=== PATIENT | male | born 1950 | race Caucasian/White ===

== ENCOUNTER 2017-05-28 10:32 | Day surgery (SDC) | payer MEDICARE ==
[~2017-05-28] VITALS: Ht 165.1 cm; Wt 84.9 kg
[~2017-05-28 10:32] MED LIST: AMBI10TA PO; FENT25DI TD; GABA300C3 PO; PERC10TA27 PO; SOMA350T PO; XANA0.5T PO; [UNRECOGNIZED DRUG - CODE]
[2017-05-28] MEDS ORDERED: IOHEXOL 350 MG/ML 100 ML BTL (for Cath Lab) OTHER ONE (10:33)
[2017-05-28] MEDS ORDERED: ASPIRIN 81 MG CHEW TAB PO SCH (11:00)
[2017-05-28 11:37] VITALS: BP 137/83; PULSE 85; RESP 18; TEMP 98.2; O2SAT 98
[2017-05-28] MEDS ORDERED: PERC10TA27 PO (11:45)
[2017-05-28] MEDS ORDERED: ASPI81TA23 PO (11:45)
[2017-05-28] MEDS ORDERED: RAPA8CAP PO (11:45)
[2017-05-28] MEDS ORDERED: SOMA350T PO (11:45)
[2017-05-28] MEDS ORDERED: OXYC-103 PO (11:45)
[2017-05-28 12:01] LABS: AUTOMATED NEUTROPHIL # 3.3 TH/MM3 (1.8-7.7); BASOPHIL % 0.6 % (0.0-2.0); EOSINOPHIL # 0.1 TH/MM3 (0-0.4); EOSINOPHIL % 1.4 % (0.0-4.0); HEMATOCRIT 41.8 % (39.0-51.0); HEMO FLAGS DIFF FINAL; LYMPH % 21.2 % (9.0-44.0); MEAN CELL VOLUME 88.5 FL (80.0-100.0); MEAN CORPUSCULAR HGB CONC 35.1 % (32.0-36.0); NEUT % 69.8 % (16.0-70.0); PLATELET COUNT 128 TH/MM3 (150-450); RED BLOOD COUNT 4.73 MIL/MM3 (4.50-5.90); RED CELL DISTRIBUTION WIDTH 12.9 % (11.6-17.2); WHITE BLOOD COUNT 4.7 TH/MM3 (4.0-11.0)
[2017-05-28 12:09] LABS: INTERNATIONAL NORMALIZED RATIO 1.1 RATIO; PROTHROMBIN TIME - PATIENT 10.7 SEC (9.8-11.6)
[2017-05-28 12:15] LABS: BICARBONATE 25.3 MEQ/L (21.0-32.0); POTASSIUM 3.9 MEQ/L (3.5-5.1)
[2017-05-28] MEDS ORDERED: HEPARIN-NS/PF INJ 1,000 ML ONE (12:50)
[2017-05-28] MEDS ORDERED: MIDAZOLAM HCL 2 MG/2 ML VIAL ONE (13:02)
[2017-05-28] MEDS ORDERED: HEPARIN SODIUM - IV 10,000 UNITS/10 ML VIAL ONE (13:40)
[2017-05-28] MEDS ORDERED: TIROFIBAN INFUSION INJ 250 ML IV ONE (14:03)
[2017-05-28] MEDS: TIROFIBAN INFUSION INJ 250 ML IV SCH (14:12)
[2017-05-28] MEDS ORDERED: CLOPIDOGREL 300 MG TAB ONE (14:18)
[2017-05-28] MEDS: CLOPIDOGREL 300 MG TAB PO ONE ×2 (14:20→15:00)
--- NOTE | 2017-05-28 14:27 | CATHPROC ---
Jimmy Fairly HIS Report Study Information Study Number Admission Scheduled Start Study Start [id number] May 28 2017 10:32AM 05/28/2017 May 28 2017 12:38PM [place] [facility] Cardiac Catheterization Admit Source Facility Department Other [facility] Physician and Clinical Staff Initial Juan Ramon Beavers Security Program Manager Ayde Phoenix BSN Recorder Venus Collins,RT(R) Scrub Ignacio Gomez RCIS(BS) Procedures Performed Procedure Location (Site) Vessel Name Coronary Angiograms LCA Left Coronary Coronary Angiograms RCA Right Coronary L Heart Cath LV Gram-hand inj. LV LV Ventricle PTCA LAD Mid Left Coronary Stent LAD Mid Left Coronary Wire insertion Fem Art (right) Femoral Art Equipment Time Dye Range Operator Description Size Mfg Part Number Used/Scraped [id number] 13:43 [employer] WIRE, ASAHI PROWATER 180CM 180CM Used *[id number] TRANSDUCER, TRUWAVE [id number] 12:59 KRAMER MAURO * Used W/STOCKCOCK *[id number] [id number] *[id number] 538-421 *[id number] *[id number] 12:59 [employer] INDUSTRIES PACK, CCL CUSTOM * Used *[id number] 12:59 [employer] PACER PEN, SKIN DUAL W/ RULER * Used *[id number] 13:50 MEDTRONIC BALLOON, 2.5 X 12MM EUPHORA 12MM Used *[id number] 13:57 MEDTRONIC STENT, 2.5 12 INTEGRITY 2.5 12 Used *[id number] 13:45 MEDTRONIC STENT, 2.5 26 INTEGRITY 2.5 26 Used *[id number] 13:51 [employer] MEDICAL 30 ANA INDEFLATOR Used *[id number] 13:40 [employer] MEDICAL SHEATH, FR6.5 PRELUDE 11CM FR 6.5 038ACT Used *[id number] 12:59 [employer] MEDICAL WIRE, 3MMJ .035 180CM 180CM Used *[id number] 12:59 NAMIC MANIFOLD, 4 PORT * Used *[id number] 12:59 NYCOMED OMNIPAQUE, 350 MG, 150ML 150ML [id number] Used 14:00 NYCOMED OMNIPAQUE, 350 MG, 150ML 150ML [id number] Used [id number] 12:59 GARCIA MEDICAL BLANKET,WARM AIR CCL * Used *[id number] 12:59 TERUMO MEDICAL SHEATH, FR4 TERUMO (10CM) FR 4 Used *[id number] Equipment Model, Serial, Lot Number and Expiration Data Description Model Number Serial Number Lot Number Expiration Date STENT, 2.5 12 INTEGRITY [id number] 10-13-2018 STENT, 2.5 26 INTEGRITY [id number] 11-07-2017 History: Current Medications Medication Dosage/Unit Route Frequency Last Date/Time Taken ASA History: Allergies Allergy Reaction Sulfa (Sulfonamide Antibiotics) meperidine History: Risk Factors Family History of Hypertension Dyslipidemia Previous NE Previous Heart Failure Premature CAD No Yes No No No Prior Valve Prior PCI Prior CABG Surgery No No No Cerebrovascular Peripheral Artery Chronic Lung On Dialysis Diabetes Disease Disease Disease No No No No No History: Stress Tests Stress or Imaging Studies Performed Yes Stress Test SPECT Stress Test SPECT Result Stress Test SPECT Ischemia Risk/Extent Yes Positive Intermediate History: Other Current Smoker No Labs Hgb (g/dl) Hct (%) WBC (l/cumm) Platelets (thousands) 11.60-17.00 35.00-51.00 4.00-11.00 150.00-450.00 14.7 41.8 4.7 128 Glucose (mg/dl) BUN (mg/dl) Creatinine (mg/dl) BUN:Creatinine (1:x) 74.00-106.00 7.00-18.00 0.50-1.30 10.00-20.00 111 16 0.8 20 Na (meq/l) K (meq/l) 136.00-145.00 3.50-5.10 139 3.9 INR (PTT:PT) 0.90-1.10 1.1 CPK-MB (ng/ML) 0.50-3.60 Not Drawn Medication Medication Total Dose (Bolus/Oral) Medication Total Dosage/Unit 1% XYLOCAINE 20 mL AGGRASTAT BOLUS 42 mL FENTANYL 25 mcg HEPARIN 6000 units PLAVIX 600 mg VERSED 2 mg Medications (Bolus/Oral) Medication Time Given Dosage/Unit Administered By Reason VERSED 05/28/2017 1:23:50 PM 1 mg Ayde Phoenix 1 mg VERSED given in lab by MatAyde moseley BSN in Left Antecubital via Peripheral IV. Ordered Juan Ramon Hdez. 1% XYLOCAINE 05/28/2017 1:26:03 PM 20 mL Juan Ramon Guzman 20 mL 1% XYLOCAINE given in lab by Juan Ramon Guzman in Right Groin via Subcutaneous. VERSED 05/28/2017 1:30:02 PM 1 mg Ayde Phoenix 1 mg VERSED given in lab by Ayde Phoenix BSN in Left Antecubital via Peripheral IV. Ordered Juan Ramon Hdez. HEPARIN 05/28/2017 1:42:00 PM 6000 units Ayde Phoenix 6000 units HEPARIN given in lab by Ayde Phoenix BSN in Left Antecubital via Peripheral IV. Or dered by Juan Ramon Guzman. AGGRASTAT BOLUS 05/28/2017 2:10:08 PM 42 mL Ayde Phoenix 42 mL AGGRASTAT BOLUS given in lab by Ayde Phoenix BSN in Left Antecubital via Peripheral IV. Ordered by Juan Ramon Guzman. FENTANYL 05/28/2017 2:11:06 PM 25 mcg Ayde Phoenix 25 mcg FENTANYL given in lab by Ayde Phoenix BSN in Left Antecubital via Peripheral IV. Order ed by Juan Ramon Guzman. PLAVIX 05/28/2017 2:20:40 PM 600 mg Ayde Phoenix 600 mg PLAVIX given in lab by Ayde Phoenix BSN via Oral. Ordered by Juan Ramon Guzman. Medication (Drip) Medication Time Given Dosage/Unit Concentration/Unit Diluent (ml) Solution AGGRASTAT DRIP 05/28/2017 2:12:10 PM 0.147 mcg/kg/min 12.5 mg 250 NaCl .9 0.147 mcg/kg/min AGGRASTAT DRIP given in lab by Ayde Phoenix BSN in Left Antecubital via Myrna pheral IV. Pump/Drip Flow = 15 ml/hr using NaCl .9 with a concentration of 12.5 mg in 250 ml. Ordered by Juan Ramon Guzman. 05/28/2017 12:38:20 IV Solutions 50 mL (IV) NaCl .9 PM IV Solutions given in lab by Ayde Phoenix BSN in Left Antecubital via Peripheral IV. Pump/Dri p Flow using NaCl .9. Initial Case Assessment Cardiovascular HR Rhythm NIBP Chest Pain 80 SR 164/92 0 Edema Present Skin color Skin Mild Normal Warm Dry Circulatory - Right Pulses Dorsalis Pedis Femoral 1 2 Scale (0,1,2,3,4,d) Circulatory - Left Pulses Dorsalis Pedis Femoral 2 2 Scale (0,1,2,3,4,d) Neurological State Oriented to time-place- Alert Moves all extremities person Respiration - General Respiration Rate SpO2 (%) (B/min) 16 100 Chronological Log Time Study Chronological Log 12:37:59 Patient arrived via Bed. 12:38:00 Patient Name, D.O.B, / Armband Verified By R.N. 12:38:01 Consent signed by the physician and the patient and verified by the [facility] staff. 12:38:02 Pre-op and post- op instructions given; patient acknowledges understanding of instructions. 12:38:02 Verbal Stimulation=2 Physical Stimulation=2 Airway=2 Respiration=2 TOTAL=8. (0=absent, 1=li mited, 2=present) 12:38:12 Patient has been NPO for More than 6Hrs. 12:38:13 Skin Breakdown- none per pt 12:38:16 Patient Warmer Placed on the Table. 12:38:17 Maite Prominences Protected 12:38:18 A # 20 IV was noted in the Antecubital (left). Grade = 0 IV Solutions given in lab by Ayde Phoenix BSN in Left Antecubital via Peripheral IV. Pu mp/Drip Flow using NaCl 12:38:20 .9. 12:38:20 History and physical on the chart or being dictated. Assessment: Initial Case, HR=80 BPM, Rhythm=SR, DKJG=092/92 mmhg, Chest Pain=0, Edema=Mild, Col or=Normal, Skin = Warm, Dry Right Pulses: Miguel Ped=1, Femoral=2 12:38:21 Left Pulses: Miguel Ped=2, Femoral=2 Neurological: State=Alert, Ox3, CASTELLON Respiration: Resp=16 B/min, LcA8=942 % Vitals capture started with the following parameters, Patient=Adult, Interval=15 min, Initial P qbhnydd=614 mmHg, 12:48:53 Deflation Rate=5 mmHg 12:50:00 Bilateral groins prepped with 2% chlorhexidine, and draped after a 3 minute waiting time. 12:50:06 HR=78 bpm, BHCH=743/92 mmhg, BsI4=984.0 %, Resp=16 B/min 12:51:38 HR=86 bpm, ZMHX=020/83 mmhg, SpO2=99.0 %, Resp=16 B/min 12:53:00 paged 12:53:33 Reference ECG taken 12:53:39 HR=85 bpm, UVDQ=901/84 mmhg, SpO2=99.0 %, Resp=17 B/min 12:54:00 MD responded 12:55:33 HR=82 bpm, FPQC=359/89 mmhg, SpO2=99.0 %, Resp=15 B/min 12:57:04 Pressure channel 1 zeroed. 12:57:19 Vitals capture stopped. Vitals capture started with the following parameters, Patient=Adult, Interval=5 min, Initial Pr adrtdj=506 mmHg, 12:57:57 Deflation Rate=5 mmHg, Cuff placed on Right Arm 12:58:36 HR=84 bpm, EECU=096/90 mmhg, SpO2=98.0 %, Resp=16 B/min 13:03:39 HR=83 bpm, JNJH=116/88 mmhg, IrH4=614.0 %, Resp=15 B/min 13:08:40 HR=71 bpm, VMLD=226/81 mmhg, DrG6=665.0 %, Resp=15 B/min 13:13:39 HR=72 bpm, JVLM=717/85 mmhg, SpO2=99.0 %, Resp=15 B/min 13:18:38 HR=78 bpm, VWRI=495/83 mmhg, MdD3=173.0 %, Resp=20 B/min 13:21:00 MD arrived. 13:23:37 HR=88 bpm, CEKP=798/84 mmhg, MnD2=826.0 %, Resp=15 B/min 1 mg VERSED given in lab by Ayde Phoenix BSN in Left Antecubital via Peripheral IV. Ord ered by Megan, 13:23:50 Juan Ramon. Time Out. Correct patient, correct procedure, correct physician, power injector loaded, or not loaded with contrast with 13:25:46 surgical team present. Time Out Concurred by MD and individual staff in procedure. 13:25:55 Case Start 13:26:03 20 mL 1% XYLOCAINE given in lab by Juan Ramon Guzman in Right Groin via Subcutaneous. 13:28:38 HR=87 bpm, CQMP=804/89 mmhg, IkA4=655.0 %, Resp=18 B/min 13:29:15 Access site was Right Femoral Artery. 13:29:22 A SHEATH, FR4 TERUMO (10CM) FR 4 was advanced into the Fem Art (right) using the Percutaneo us technique. 1 mg VERSED given in lab by Ayde Phoenix BSN in Left Antecubital via Peripheral IV. Ord ered by Megan, 13:30:02 Juan Ramon. A JR 4.0 INFINITI CATHETER FR 4 was advanced over a wire. OMNIPAQUE, 350 MG, 150ML 150ML was us ed for 13:30:23 injections. 13:30:54 The LV was manually injected with 6 cc's and visualized. OMNIPAQUE, 350 MG, 150ML 150ML use d. Recorded Pressure: LV, XM=448, Condition=Condition 1 13:31:00 (Left Ventricle) LV 127/1/9 Recorded Pressure: LV, Ao, HR=96, Condition=Condition 1 13:31:03 (Left Ventricle) LV 147/8/14, (Aorta) Ao 145/73/108 13:32:04 The RCA was injected and visualized at various angles. OMNIPAQUE, 350 MG, 150ML 150ML used . After removing the current catheter a JL 4.0 INFINITI CATHETER FR 4 was advanced over a WIRE, 3 MMJ .035 180CM 13:32:42 180CM. Recorded Pressure: Ao, HR=84, Condition=Condition 1 13:33:03 (Aorta) Ao 147/70/104 13:33:16 The LCA was injected and visualized at various angles. OMNIPAQUE, 350 MG, 150ML 150ML used . 13:33:41 HR=83 bpm, UCDM=733/87 mmhg, SpO2=97.0 %, Resp=18 B/min 13:36:27 Catheter was removed 13:38:40 HR=91 bpm, XWVR=224/86 mmhg, SpO2=97.0 %, Resp=10 B/min A SHEATH, FR6.5 PRELUDE 11CM FR 6.5 was exchanged in the Fem Art (right). This was necessary in order to 13:39:35 accomodate a larger catheter. 6000 units HEPARIN given in lab by Ayde Phoenix BSN in Left Antecubital via Peripheral IV. Ordered by 13:42:00 Juan Ramon Guzman. A XB 3.5 GUIDE CATHETER FR 6 was advanced over a wire. OMNIPAQUE, 350 MG, 150ML 150ML was used for 13:42:04 injections. 13:43:20 A WIRE, ASAHI PROWATER 180CM 180CM was inserted via Fem Art (right). 13:43:41 HR=90 bpm, LVML=239/94 mmhg, SpO2=98.0 %, Resp=20 B/min 13:43:41 Interventional wire has crossed the lesion An STENT, 2.5 26 INTEGRITY 2.5 26 Bare Metal Stent was inserted through a XB 3.5 GUIDE CATHETER FR 6 over a 13:45:36 WIRE, ASAHI PROWATER 180CM 180CM. 13:48:00 Stent not deployed. Stent removed and intact. 13:48:42 HR=92 bpm, IOQC=384/89 mmhg, SpO2=99.0 %, Resp=15 B/min A BALLOON, 2.5 X 12MM EUPHORA 12MM was inserted over WIRE, ASAHI PROWATER 180CM 180CM via the F em Art 13:49:27 (right). A BALLOON, 2.5 X 12MM EUPHORA 12MM over a WIRE, ASAHI PROWATER 180CM 180CM in the LAD Mid was i nflated 13:50:50 using a 30 ANA INDEFLATOR at 6 ana for 15 sec. A BALLOON, 2.5 X 12MM EUPHORA 12MM over a WIRE, ASAHI PROWATER 180CM 180CM in the LAD Mid was i nflated 13:51:24 using a 30 ANA INDEFLATOR at 7 ana for 30 sec. A BALLOON, 2.5 X 12MM EUPHORA 12MM over a WIRE, ASAHI PROWATER 180CM 180CM in the LAD Mid was i nflated 13:51:41 using a 30 ANA INDEFLATOR at 8 ana for 10 sec. A BALLOON, 2.5 X 12MM EUPHORA 12MM over a WIRE, ASAHI PROWATER 180CM 180CM in the LAD Mid was i nflated 13:52:00 using a 30 ANA INDEFLATOR at 6 ana for 10 sec. A BALLOON, 2.5 X 12MM EUPHORA 12MM over a WIRE, ASAHI PROWATER 180CM 180CM in the LAD Mid was i nflated 13:52:07 using a 30 ANA INDEFLATOR at 5 ana for 10 sec. 13:53:05 Balloon Removed. An STENT, 2.5 26 INTEGRITY 2.5 26 Bare Metal Stent was inserted through a XB 3.5 GUIDE CATHETER FR 6 over a 13:53:24 WIRE, ASAHI PROWATER 180CM 180CM. 13:53:43 HR=95 bpm, DLKT=062/97 mmhg, YlO1=270.0 %, Resp=12 B/min A STENT, 2.5 26 INTEGRITY 2.5 26 was deployed using a 30 ANA INDEFLATOR at 10 atmospheres for 1 0 seconds in 13:55:21 the LAD Mid. 13:56:00 Delivery device removed 13:57:41 Activated Clotting Time Drawn An STENT, 2.5 12 INTEGRITY 2.5 12 Bare Metal Stent was inserted through a XB 3.5 GUIDE CATHETER FR 6 over a 13:58:38 WIRE, ASAHI PROWATER 180CM 180CM. 13:58:44 HR=95 bpm, XSMZ=536/97 mmhg, BsA5=926.0 %, Resp=20 B/min 14:00:45 ACT (Normal Range 90-180) = 280 A STENT, 2.5 12 INTEGRITY 2.5 12 was deployed using a 30 ANA INDEFLATOR at 10 atmospheres for 1 0 seconds in 14:01:12 the LAD Mid. 14:01:48 Re-inflated the stent balloon in the LAD Mid to 11 ANA for 10 seconds. 14:03:06 Wire removed 14:03:08 Catheter was removed 14:03:25 Case End 14:03:46 HR=98 bpm, WYMG=731/89 mmhg, SpO2=98.0 %, Resp=19 B/min 14:04:38 In the Fem Art (right) the SHEATH, FR6.5 PRELUDE 11CM FR 6.[address] by Juan Ramon Pérez. 14:04:49 Sterile dressing applied to site 14:04:50 No case complications noted. 14:04:53 Cine recording checked. 14:04:55 Holding Area notified of successful intervention. 14:04:57 Bedside Report will be given. 14:04:58 Implantable Device card placed in patient's chart. 14:05:03 Contrast Scanned 14:05:15 A Left Heart Cath was performed. 14:08:42 HR=97 bpm, AOZN=921/93 mmhg, SpO2=98.0 % 42 mL AGGRASTAT BOLUS given in lab by Ayde Phoenix BSN in Left Antecubital via Periphe ral IV. Ordered by 14:10:08 Juan Ramon Guzman. 25 mcg FENTANYL given in lab by Ayde Phoenix BSN in Left Antecubital via Peripheral IV . Ordered by 14:11:06 Juan Ramon Guzman. 0.147 mcg/kg/min AGGRASTAT DRIP given in lab by Ayde Phoenix BSN in Left Antecubital v ia Peripheral IV. 14:12:10 Pump/Drip Flow = 15 ml/hr using NaCl .9 with a concentration of 12.5 mg in 250 ml. Ordered by Juan Ramon Guzman. 14:13:46 HR=91 bpm, LNAJ=093/89 mmhg, PpP5=656.0 %, Resp=15 B/min 14:17:06 Vitals capture stopped. 14:20:40 600 mg PLAVIX given in lab by Ayde Phoenix BSN via Oral. Ordered by Roderick Guzman. End Study - Contrast Media Used In Study Contrast Total Opened (mL) Total Used (mL) Total Wasted (mL) Omnipaque 180 180 0 End Study - Maximum Contrast Load Max Contrast Load (mL) 531.3 End Study - Radiation Exposure Fluoro Time (minutes) 10.2 End Study - Patient Disposition Complications Transferred To Interventional Outcome No Telemetry Bed successful
[2017-05-28] MEDS ORDERED: SODIUM CHLORIDE 0.9% FLUSH 10 ML FLUSH IV FLUSH PRN (15:00)
[2017-05-28] MEDS ORDERED: NITROGLYCERIN 2% OINT 1 GM PACKET TOPICAL ONE (15:00)
[2017-05-28] MEDS ORDERED: MISC INFORMATION XX ONE (15:00)
[2017-05-28] MEDS ORDERED: CARISOPRODOL 350 MG TAB PO PRN (15:30)
[2017-05-28 15:32] LABS: HDL CHOLESTEROL 58.1 MG/DL (40.0-60.0); INDIRECT BILIRUBIN 0.4 MG/DL (0.0-0.8); TOTAL BILIRUBIN ADULT 0.6 MG/DL (0.2-1.0)
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
[2017-05-28] MEDS: oxyCODONE/ACETAMINOPHEN 10 MG/325 MG TAB PO PRN ×2 (16:00→22:15)
[2017-05-28 19:25] VITALS: BP 114/66; PULSE 90; PULSE 91; RESP 18; TEMP 98.2; O2SAT 97
[2017-05-28 20:15] VITALS: PULSE 91
[2017-05-28] MEDS: CARVEDILOL 3.125 MG TAB PO SCH (20:16)
[2017-05-28] MEDS: SODIUM CHLORIDE 0.9% FLUSH 10 ML FLUSH IV FLUSH SCH (20:16)
[2017-05-28] MEDS: oxyCODONE HCL 20 MG CONTROLLED RELEASE TAB PO SCH (20:16)
[2017-05-28 21:00] VITALS: PULSE 96
[2017-05-28] MEDS ORDERED: ATORVASTATIN 10 MG TAB PO SCH (21:00)
[2017-05-28 22:15] VITALS: PULSE 80
[2017-05-28 23:30] VITALS: BP 128/70; PULSE 89; PULSE 93; RESP 16; TEMP 98; O2SAT 98
[2017-05-29] VITALS (12 sets, daily range): BP systolic 116–147; BP diastolic 62–88; PULSE 67–84; RESP 16; TEMP 97.1–98.1; O2SAT 97–100
[2017-05-29] MEDS: oxyCODONE/ACETAMINOPHEN 10 MG/325 MG TAB PO PRN (02:15)
[2017-05-29] MEDS: TIROFIBAN INFUSION INJ 250 ML IV SCH (02:16)
[2017-05-29 06:28] LABS: AUTOMATED NEUTROPHIL # 5.5 TH/MM3 (1.8-7.7); BASOPHIL % 0.3 % (0.0-2.0); EOSINOPHIL % 0.2 % (0.0-4.0); HEMO FLAGS DIFF FINAL; LYMPH % 20.9 % (9.0-44.0); LYMPHOCYTE # 1.7 TH/MM3 (1.0-4.8); MEAN CELL VOLUME 88.2 FL (80.0-100.0); MEAN CORPUSCULAR HEMOGLOBIN 31.3 PG (27.0-34.0); MEAN CORPUSCULAR HGB CONC 35.5 % (32.0-36.0); MONO % 9.8 % (0.0-8.0); NEUT % 68.8 % (16.0-70.0); PLATELET COUNT 137 TH/MM3 (150-450); RED BLOOD COUNT 4.19 MIL/MM3 (4.50-5.90)
[2017-05-29] MEDS: CARVEDILOL 3.125 MG TAB PO SCH (08:36)
[2017-05-29] MEDS: oxyCODONE HCL 20 MG CONTROLLED RELEASE TAB PO SCH (08:38)
[2017-05-29] MEDS: SODIUM CHLORIDE 0.9% FLUSH 10 ML FLUSH IV FLUSH SCH (08:38)
[2017-05-29] MEDS ORDERED: ASPIRIN 81 MG CHEW TAB PO SCH (09:00)
[2017-05-29] MEDS ORDERED: RAMIPRIL 2.5 MG CAP PO SCH (09:00)
[2017-05-29] MEDS ORDERED: TAMSULOSIN HCL 0.4 MG CAP PO SCH (09:00)
[2017-05-29] MEDS ORDERED: CLOPIDOGREL 75 MG TAB PO SCH (09:00)
[2017-05-29] MEDS ORDERED: ASPI81CH6 CHEW (09:45)
[2017-05-29] MEDS ORDERED: LIPI80TA PO (09:46)
[2017-05-29] MEDS ORDERED: CLOP75TA PO (09:46)
--- NOTE | 2017-05-29 14:11 | EKG ---
Date Performed: 05/28/2017 Time Performed: 15:12:14 PTAGE: 66 years EKG: Sinus rhythm . Possible inferior infarct Abnormal ECG Compared to prior tracing no significant change PREVIOUS TRACING 05/28/17 11.29 DOCTOR: Sam Coleman Interpretating Date/Time 05/29/2017 14:10:20
--- NOTE | 2017-05-29 14:11 | EKG ---
Date Performed: 05/28/2017 Time Performed: 11:29:24 PTAGE: 66 years EKG: Sinus rhythm . Cannot exclude an inferior infarct noted on the prior tracing. Abnormal ECG PREVIOUS TRACING 06/29/2014 13.10 DOCTOR: Sam Coleman Interpretating Date/Time 05/29/2017 14:09:42
--- NOTE | 2017-05-29 17:57 | EKG ---
Date Performed: 05/29/2017 Time Performed: 05:26:00 PTAGE: 66 years EKG: Sinus rhythm Possible inferior infarct - age undetermined Anterolateral ST-T changes are nonspecific Since previo us tracing, no significant change noted Abnormal ECG PREVIOUS TRACING : 05/28/2017 15.12 DOCTOR: Sam Coleman Interpretating Date/Time 05/29/2017 17:57:13
== END 2017-05-29 12:30 | disposition home or self-care (01) ==
LOC: HDOC 10:32 → HDIC 10:33 → HCIS 18:35 → HDOC 05-29 12:30
PROVIDERS: ATTEND Internal Medicine Interventional Cardiology
DX: I25.110 Atherosclerotic heart disease of native coronary artery with unstable angina pectoris (principal); M25.552 Pain in left hip; M16.9 Osteoarthritis of hip, unspecified; E78.00 Pure hypercholesterolemia, unspecified
CPT/HCPCS: 80048; 80061; 80076; 82550; 85002; 85025; 85610; 92928; 93005; 93458; 99152; 99153; C1725; C1769; C1876; C1887; C1893; J1644; J2250; J3010; J3246; 85347; Q9967